=== PATIENT | male | born 1985 | race Caucasian/White ===

== ENCOUNTER → 2022-03-24 14:04 | Outpatient (BNVA) | payer BC, SELFPAY | PROVIDERS: Family Provider Pediatrics Adolescent Medicine; Visit Provider Family Medicine | DX: Z00.00 Encounter for general adult medical examination without abnormal findings (principal) | CPT/HCPCS: 80053; 80061 ==

== ENCOUNTER 2023-01-11 14:38 | Outpatient (CLI) | payer BC, SELFPAY ==
--- NOTE | 2023-01-11 15:00 | US_ITS ---
WS: [id number] TESTICULAR ULTRASOUND HISTORY: N50.3 - Cyst of epididymis COMPARISON: None available. TECHNIQUE: Real-time and color Doppler imaging or utilized to perform a testicular ultrasound. Right testicle: 5.0 cm x 3.0 cm x 2.8 cm. Normal size and echogenicity. No mass or torsion. Normal color Doppler is present throughout. Systolic and diastolic velocities are both present. No significant hydrocele. Right epididymis: Normal epididymis with no increased vascularity. Left testicle: 4.9 cm x 3.0 cm x 2.5 cm. Normal size and echogenicity. No mass or torsion. Normal color Doppler is present throughout. Systolic and diastolic velocities are both present. No significant hydrocele. Left epididymis: Normal epididymis with no increased vascularity. LEFT epididymal head is slightly la rger than the RIGHT but still within normal limits of variation. IMPRESSION: NORMAL TESTICULAR ULTRASOUND. No spermatocele.
== END 2023-01-11 14:39 | disposition home or self-care (01) ==
PROVIDERS: PCP Family Medicine; Visit Provider Family Medicine
DX: N50.3 Cyst of epididymis (principal)
CPT/HCPCS: 76870